=== PATIENT | male | born 1960 | race Caucasian/White ===

== ENCOUNTER 2016-05-19 09:31 | Emergency (ER) | payer MEDICARE, MEDICAID ==
[~2016-05-19] VITALS: Ht 170.2 cm; Wt 79.5 kg
[~2016-05-19 09:31] MED LIST: OXYC1TAB91 PO
[2016-05-19 09:46] VITALS: BP 131/92; PULSE 88; RESP 16; O2SAT 97
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
== END 2016-05-19 11:31 | disposition home or self-care (01) ==
LOC: SED 09:31
DX: G89.29 Other chronic pain (principal); E11.9 Type 2 diabetes mellitus without complications; I10 Essential (primary) hypertension; I25.10 Atherosclerotic heart disease of native coronary artery without angina pectoris; E78.5 Hyperlipidemia, unspecified; Z86.73 Personal history of transient ischemic attack (TIA), and cerebral infarction without residual deficits; Z95.1 Presence of aortocoronary bypass graft